=== PATIENT | female | born 1970 | race Caucasian/White ===

== ENCOUNTER 2017-07-22 12:53 | Outpatient (CLI) | payer BC ==
--- NOTE | 2017-07-22 14:05 | RAD ---
CERVICAL SPINE THREE VIEWS: HISTORY: A 47-year-old female with a history of neck pain and diagnosis M47.812. FINDINGS: Evidence for spondylosis, particularly at C4-C5 and at C5-C6. There is some very minute retrolisthes is of C5 on C6 and anterolisthesis of C4 on C5. No evidence for abnormal translation between flexion and extension. No prevertebral soft tissue swelling. C7-T1 is not completely seen and is partially obscured on these lateral views. IMPRESSION: 1. Evidence for spondylosis. 2. No abnormal translation. POS: [facility]
== END 2017-07-22 12:54 | disposition home or self-care (01) ==
LOC: TBSIIMAG 12:53
PROVIDERS: ATTEND Neurological Surgery
DX: M47.812 Spondylosis without myelopathy or radiculopathy, cervical region (principal)
CPT/HCPCS: 72040

== ENCOUNTER 2018-10-12 14:04 | Outpatient (CLI) | payer BC ==
[2018-10-12 15:02] LABS: #Basophils 0.1 thou/uL (0.0-0.2); #Eosinphils 0.1 thou/uL (0.0-0.7); #Lymphocytes 2.2 thou/uL (1.20-3.40); #Monocytes 0.9 thou/uL (0.11-0.59); #Neutrophils 6.2 thou/uL (1.40-6.50); %Basophils 0.7 % (0.0-1.0); %Eosinophils 1.1 % (0.0-10.0); %Lymphocytes 23.1 % (21.0-51.0); %Monocytes 9.3 % (0.0-10.0); %Neutrophils 65.8 % (42.0-75.0); Hemoglobin 12.6 g/dL (12.0-16.0); Mean Corpuscular HGB CONC 32.3 g/dL (32.0-36.0); Mean Corpuscular Hemoglobin 29.6 pg (27.0-31.0); Mean Corpuscular Volume 91.4 fL (78.0-98.0); Mean Platelet Volume 7.6 fL (7.4-10.4); Platelet Count 376 thou/uL (130-400); RBC Distribution Width 12.3 % (11.5-14.5); Red Blood Cell (RBC) Count 4.27 mill/uL (4.20-5.40); White Blood Cell (WBC) Count 9.4 thou/uL (4.8-10.8)
[2018-10-12 15:28] LABS: Anion Gap 12 mmol/L (10-20); BUN (Urea Nitrogen) 12 mg/dL (7.0-18.7); Calc. Creatinine Clearance 0 mL/min (70-130); Calcium 9.4 mg/dL (7.8-10.44); Carbon Dioxide 29 mmol/L (22-29); Chloride 104 mmol/L (98-107); Estimated GFR-MDRD 83; Glucose 71 mg/dL (70-105); Potassium 3.9 mmol/L (3.5-5.1); Sodium 141 mmol/L (136-145)
== END 2018-10-12 14:05 | disposition home or self-care (01) ==
LOC: LABBT 14:04
PROVIDERS: ATTEND Orthopaedic Surgery
DX: Z01.812 Encounter for preprocedural laboratory examination (principal); S83.281A Other tear of lateral meniscus, current injury, right knee, initial encounter
CPT/HCPCS: 80048; 85025

== ENCOUNTER 2018-10-15 05:53 | Day surgery (SDC) | payer BC ==
[2018-10-12 14:13] VITALS: BMI 33.6
[2018-10-15] MEDS ORDERED: ceFAZolin Sodium (SDC) 2 GM/100 ML BAG ONE (06:26)
[2018-10-15] MEDS ORDERED: Scopolamine 1.5 mg/72 hour Patch ONE (07:07)
--- NOTE | 2018-10-15 12:57 | OP ---
DATE OF PROCEDURE: PREOPERATIVE DIAGNOSIS: Lateral meniscus tear, right knee. 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 ESTIMATED BLOOD LOSS: Minimal. SPECIMENS: None. DRAINS: None. COMPLICATIONS: None. DESCRIPTION OF PROCEDURE: The patient was taken to the operating room, where general anesthesia was induced. Right leg was prepped and draped in usual sterile fashion. ACL was intact. Medial compartment was intact. Did a partial lateral meniscectomy. Did not do any abrasion chondroplasty. The knee was irrigated. patellar pouch. The knee was drained, and sterile dressing was applied. Job ID: [id number]
== END 2018-10-15 10:33 | disposition home or self-care (01) ==
LOC: SDC 05:53
PROVIDERS: ATTEND Orthopaedic Surgery
PROC: 0SBC0ZZ Excision of Right Knee Joint, Open Approach (ICD-10-PCS; principal; 2018-10-15)
DX: S83.261A Peripheral tear of lateral meniscus, current injury, right knee, initial encounter (principal); M94.261 Chondromalacia, right knee; M17.0 Bilateral primary osteoarthritis of knee; F90.9 Attention-deficit hyperactivity disorder, unspecified type; F32.9 Major depressive disorder, single episode, unspecified; M79.7 Fibromyalgia; Z79.899 Other long term (current) drug therapy; Z88.5 Allergy status to narcotic agent; Z88.1 Allergy status to other antibiotic agents
CPT/HCPCS: J0690

== ENCOUNTER 2019-09-10 09:56 | Outpatient (CLI) | payer BC, OTHER ==
[2019-09-10 14:02] LABS: #Eosinphils 0.2 thou/uL (0.0-0.7); #Lymphocytes 1.9 thou/uL (1.20-3.40); #Monocytes 0.5 thou/uL (0.11-0.59); #Neutrophils 3.7 thou/uL (1.40-6.50); %Basophils 0.6 % (0.0-1.0); %Eosinophils 3.5 % (0.0-10.0); %Lymphocytes 29.5 % (21.0-51.0); %Monocytes 7.1 % (0.0-10.0); %Neutrophils 59.2 % (42.0-75.0); Hemoglobin 12.8 g/dL (12.0-16.0); Mean Corpuscular Hemoglobin 28.9 pg (27.0-31.0); Mean Corpuscular Volume 90.4 fL (78.0-98.0); Mean Platelet Volume 8.3 fL (7.4-10.4); Platelet Count 356 thou/uL (130-400); RBC Distribution Width 12.6 % (11.5-14.5); Red Blood Cell (RBC) Count 4.44 mill/uL (4.20-5.40); White Blood Cell (WBC) Count 6.3 thou/uL (4.8-10.8)
[2019-09-10 14:13] LABS: Bacteria/HPF 2+ HPF (None Seen); Bilirubin Negative (Negative); Blood, Urine Negative (Negative); Clarity Clear (Clear); Glucose, Urine (Dipstick) Normal (Negative); Leukocyte Negative Leu/uL (Negative); Nitrite Negative (Negative); Protein, Urine (Dipstick) 10 mg/dL (Neg-Trace); RBC/HPF 0-3 HPF (0-3); Squamous Epithelial 0-3 HPF (0-3); Urobilinogen Normal mg/dL (Less than 2); WBC/HPF 0-3 HPF (0-3)
[2019-09-10 14:26] LABS: Prothrombin Time 12.7 sec (12.0-14.7)
[2019-09-10 14:33] LABS: Anion Gap 14 mmol/L (10-20); BUN (Urea Nitrogen) 8 mg/dL (9.8-20.1); Calc. Creatinine Clearance 0 mL/min (70-130); Calcium 8.8 mg/dL (7.8-10.44); Carbon Dioxide 23 mmol/L (22-29); Chloride 105 mmol/L (98-107); Estimated GFR-MDRD 84; Glucose 88 mg/dL (70-105); Potassium 4.3 mmol/L (3.5-5.1); Sodium 138 mmol/L (136-145)
[2019-09-11 11:37] LABS: SARS-CoV-2 MS2 Positive; SARS-CoV-2 N Gene Negative; SARS-CoV-2 S Gene Negative; SARS-CoV-2 orf1ab Negative
== END 2019-09-10 09:57 | disposition home or self-care (01) ==
LOC: LABBT 09:56
PROVIDERS: ATTEND Orthopaedic Surgery
DX: Z01.818 Encounter for other preprocedural examination (principal); Z11.59 Encounter for screening for other viral diseases; M17.31 Unilateral post-traumatic osteoarthritis, right knee
CPT/HCPCS: 80048; 81001; 85025; 85610; 87081; 87635; U0003

== ENCOUNTER 2019-09-14 06:46 | Inpatient (IN) | payer BC ==
[2019-09-14] MEDS ORDERED: Sodium Chloride 0.9% 100 ML ONE (06:51)
[2019-09-14] MEDS ORDERED: Tranexamic Acid 1,000 MG/10 ML VIAL ONE (06:51)
[2019-09-14] MEDS ORDERED: Vancomycin 1.5 GRAM/300 ML BAG ONE (06:51)
[2019-09-14] MEDS ORDERED: Promethazine HCl 25 MG/ML VIAL IM PRN ×3 (07:11→10:18)
[2019-09-14] MEDS ORDERED: Acetaminophen 325 MG TAB PO PRN (07:11)
[2019-09-14] MEDS ORDERED: Ondansetron PF 4 MG/2 ML Vial IVP PRN ×2 (07:11→09:03)
[2019-09-14] MEDS ORDERED: Zolpidem Tartrate 5 MG TAB PO PRN ×2 (07:11→09:03)
[2019-09-14] MEDS ORDERED: Midazolam HCl 2 mg/2 ml Vial ONE (08:14)
[2019-09-14] MEDS ORDERED: Fentanyl 100 MCG/2 ML VIAL ONE ×3 (08:14→10:50)
[2019-09-14] MEDS ORDERED: EPINEPHrine 1 MG/ML AMP ONE (08:14)
[2019-09-14] MEDS ORDERED: oxyCODONE/Acetaminophen 5 mg/325 mg Tablet PO PRN (08:48)
[2019-09-14] MEDS ORDERED: Scopolamine 1.5 mg/72 hour Patch ONE (08:52)
[2019-09-14] MEDS ORDERED: [UNRECOGNIZED DRUG - OTHER] PO SCH (09:00)
[2019-09-14] MEDS ORDERED: AMPHETAMINE PO SCH (09:00)
[2019-09-14] MEDS ORDERED: DEXTROAMPHETAMINE PO SCH (09:00)
[2019-09-14] MEDS ORDERED: Ropivacaine HCl/PF 250 ML in Premix Bag 1 BAG NERVE BLCK SCH (09:03)
[2019-09-14] MEDS ORDERED: traMADol HCl 50 MG TAB PO PRN ×2 (09:03)
[2019-09-14] MEDS ORDERED: Fentanyl 100 MCG/2 ML VIAL SLOW IVP PRN (09:05)
[2019-09-14] MEDS ORDERED: Ketorolac Tromethamine 30 MG/ML VIAL IVP PRN (10:18)
[2019-09-14] MEDS ORDERED: Ondansetron HCl/PF 4 MG/2 ML Vial IVP PRN (10:18)
[2019-09-14] MEDS ORDERED: Promethazine HCl 25 MG/ML VIAL SLOW IVP PRN (10:18)
[2019-09-14] MEDS ORDERED: diphenhydrAMINE 50 MG/ML VIAL ONE (11:13)
[2019-09-14] MEDS ORDERED: PROPOFOL 200 MG/20 ML VIAL ONE (11:43)
[2019-09-14] MEDS ORDERED: EPHEDRINE 25 MG/5 ML SYRINGE ONE (11:43)
[2019-09-14] MEDS ORDERED: Dexamethasone 20 MG/5 ML VIAL ONE (11:43)
[2019-09-14] MEDS ORDERED: Ondansetron PF 4 MG/2 ML Vial ONE (11:43)
[2019-09-14] MEDS ORDERED: Ropivacaine 0.2% HCl/PF (40 MG/20 ML VIAL) ONE (11:43)
[2019-09-14] MEDS ORDERED: Bupivacaine HCl 0.5%/Epinephrine 1:200,000/PF 30 ml Vial ONE (11:43)
[2019-09-14] MEDS: Aspirin 81 mg Enteric Coated Tablet PO SCH ×3 (12:02→21:02)
[2019-09-14] MEDS: DULoxetine 60 MG CAP PO SCH (12:02)
[2019-09-14] MEDS: Hydroxychloroquine Sulfate 200 MG TAB PO SCH ×2 (12:03→21:58)
[2019-09-14] MEDS: Senokot S 8.6-50 MG TAB PO SCH ×2 (12:03→21:00)
[2019-09-14] MEDS: Multivitamin W/ Minerals 1 TAB PO SCH (12:03)
[2019-09-14] MEDS: Ferrous Gluconate 324 MG TAB PO SCH ×2 (12:03→21:00)
[2019-09-14] MEDS: Sodium Chloride 0.9% 1,000 ML IV SCH ×2 (12:05→15:45)
[2019-09-14] MEDS: Ketorolac Tromethamine 30 MG/ML VIAL IVP SCH ×5 (13:11→23:16)
[2019-09-14] MEDS: diphenhydrAMINE 25 MG CAP PO PRN ×2 (13:11→21:02)
--- NOTE | 2019-09-14 13:20 | RAD ---
RIGHT KNEE 2 VIEWS: HISTORY: Postop total knee arthroplasty. FINDINGS/IMPRESSION: Status post total knee replacement without periprosthetic fracture or dislocation or other acute proc ess. POS: [facility]
[2019-09-14] MEDS ORDERED: Albuterol Sulfate 1.25 MG/3 ML NEB INH PRN (14:00)
[2019-09-14] MEDS: CEFAZOLIN 2 GM in Premix Bag 1 BAG IVPB SCH ×2 (15:36→22:02)
--- NOTE | 2019-09-14 16:31 | OP ---
DATE OF PROCEDURE: 09/14/2019 TITLE OF PROCEDURE: Right total knee arthroplasty using [place] Triathlon 4 femur, 4 tibia, 11 mm CS X3 polyethylene, and A29 patella. ANDROID ARCHITECT: Gurjit Calix PA-C BLOOD LOSS: Minimal. SPECIMENS: None. DRAINS: None. COMPLICATIONS: None. PROCEDURE IN DETAIL: After informed consent was obtained in the preoperative holding area, the patient was taken to the operative suite where general anesthesia was induced. Once adequate level of general anesthesia was obtained, the patient was positioned and a well-padded tourniquet was placed around the right proximal thigh. The right lower extremity was then prepped and draped in the usual sterile fashion. Prior to exsanguination, a time-out was called and all members of the surgical team agreed upon site, surgeon, and patient. The extremity was then exsanguinated and the tourniquet was raised. A midline longitudinal incision was then made directly over the patella extending 2 fingerbreadths above the superior pole of the patella and 2 fingerbreadths inferior to the inferior patellar pole of the patella. Deeper subcutaneous layers were dissected sharply and local bleeding was controlled with Bovie electrocautery. A quad tendon longitudinal split was then made sharply and a median parapatellar arthrotomy was carried out both sharp and with Bovie electrocautery, carried down to 1 fingerbreadth medial to the tibial tubercle. The knee was then placed into flexion and the patella was everted nicely, and a copious fat pad ectomy was performed allowing for greater exposure of the tibia. The computer-assisted distal femoral fiducial was then placed and pinned firmly, and the distal femoral cutting guide was pinned firmly into place. The oscillating saw was then used to remove the appropriate amount of bone. The 4-in-1 cutting block was then placed on the distal femur and the oscillating saw was used to remove the appropriate amount of bone off the anterior, posterior, and chamfer cuts. After completion of bone cuts, the anterior cruciate ligament was resected sharply and the posterior cruciate ligament retractor was placed and the tibia was subluxed for better exposure. Partial meniscectomies were carried out, and the tibial computer-assisted fiducial was pinned, and the cutting guide was placed. Oscillating saw was then used to remove the bone, with Hohmann retractors used to take care and protect the collateral ligaments. After the tibial resection was performed, a laminar creche attendant was placed in between the freshened bone cuts. The knee placed at 90 degrees and further bilateral meniscectomies were carried out, and the curved osteotome and curettage were used to remove any excess bone spurs in the posterior compartment. The trial femoral component, tibial baseplate were placed with the appropriate polyethylene trial insert with an appropriate polyethylene spacer and patellar button. The knee was taken through full range of motion with flexion and extension from 0 to 90 degrees and patellar broach squarely in the trochlea without any squinting or subluxation noted. The knee was also stable to varus and valgus stressing at 0, 15, 45, and 90 degrees of flexion. The drawer was negative. All trial components were then removed and the keel punch was used to provide the appropriate defect in the tibia with a mallet. The freshened bone cuts were copiously irrigated with pulsatile lavage of about 1.5 L to remove all excess debris. The freshened bone cuts were then dried with suction and lap sponge. The knee was placed in flexion and retractors were placed to provide access to all bone cuts. Tobramycin-impregnated methyl methacrylate cement was then placed on the freshened bone cuts and implants which were malleted firmly into place. Curettage and [place] elevators were used to remove any excess bone cement. The knee was placed into full extension and the patellar button was placed under compression, and the cement was allowed to cure. Once completed, the components were again taken through full range of motion and copious irrigation of the knee was carried out with another liter of normal saline. All components were inspected fully with full range of motion and varus and valgus stressing. There was no laxity noted and full extension was observed clinically. Primary closure was accomplished with #2 interrupted Vicryl stitch of the arthrotomy defect. This was oversewn with a #2 running Quill barbed stitch. The gravitational platelet system was then injected into the arthrotomy prior to closure. The subcutaneous layer was then closed with a running 0 barbed Monocryl stitch and skin closure accomplished with a running subcuticular 3-0 Monocryl barbed Quill stitch and augmented with cement on the skin. Tourniquet was lowered. Good spontaneous return of distal pulses was noted clinically and a sterile dressing was applied to the incision. The procedure was terminated without any complications. The patient was awakened in the operative suite and the was removed, and the patient was taken to the recovery room in stable condition. Job ID: [id number]
--- NOTE | 2019-09-14 18:00 | PDOC.HOSPP ---
- Subjective Encounter Date: 09/14/19 Encounter Time: 17:40 Subjective: Consult for general med mgmt s/p R TKA due to traumatic degenerative changes. Pt states feeling well overall. Apparently had a reaction to Fentanyl earlier tx with Benadryl and now resolved. - Objective Vital Signs & Weight: Vital Signs (12 hours) Temp Pulse Resp BP Pulse Ox 09/14/19 11:40 97.0 F L 69 16 121/72 95 Weight Weight 194 lb I&O: 09/13/19 09/14/19 09/15/19 06:59 06:59 06:59 Intake Total 230 Balance 230 Additional Labs: Laboratory Tests 09/10/19 09/10/19 09/10/19 12:14 12:14 12:14 WBC 6.3 Hgb 12.8 Hct 40.1 Plt Count 356 Sodium 138 Potassium 4.3 Chloride 105 Carbon Dioxide 23 BUN 8 L Creatinine 0.73 Glucose 88 COVID-19 PCR Not Detected EKG Reviewed by me: Yes (NSR in 70's, no acute changes) Hospitalist ROS - Medication Medications: Active Medications Generic Name Dose Route Start Last Admin Trade Name Freq PRN Reason Stop Dose Admin Aspirin 81 mg 09/14/19 09:00 09/14/19 12:02 Ecotrin PO Not Given BID MICHAELLE Aspirin 81 mg 09/14/19 09:00 09/14/19 12:02 Ecotrin PO Not Given DAILY MICHAELLE Diphenhydramine HCl 25 mg 09/14/19 07:11 09/14/19 13:11 Benadryl PO 25 mg Q6H PRN Administration Itching Duloxetine HCl 60 mg 09/14/19 09:00 09/14/19 12:02 Cymbalta PO Not Given QAM MICHAELLE Ferrous Gluconate 324 mg 09/14/19 09:00 09/14/19 12:03 Fergon PO Not Given BID MICHAELLE Hydroxychloroquine Sulfate 200 mg 09/14/19 09:00 09/14/19 12:03 Plaquenil PO Not Given BID MICHAELLE Cefazolin Sodium/Dextrose 2 gm 50 mls @ 100 mls/hr 09/14/19 15:00 09/14/19 15 :36 / Device IVPB 09/14/19 23:29 50 mls 0700,1500,2300 MICHAELLE Administration Sodium Chloride 1,000 mls @ 100 mls/hr 09/14/19 07:15 09/14/19 15:45 Normal Saline 0.9% IV Not Given .Q10H MICHAELLE Iron/Minerals/Multivitamins 1 tab 09/14/19 09:00 09/14/19 12:03 Theragran M PO Not Given DAILY [facility] Ketorolac Tromethamine 30 mg 09/14/19 14:00 09/14/19 13:12 Toradol IVP 09/16/19 14:01 Not Given Q8HR MICHAELLE Ketorolac Tromethamine 30 mg 09/14/19 12:00 09/14/19 17:42 Toradol IVP 09/16/19 06:01 30 mg Q6HR MICHAELLE Administration Senna/Docusate Sodium 2 tab 09/14/19 09:00 09/14/19 12:03 Senokot S PO Not Given BID MICHAELLE - Exam General Appearance: NAD, awake alert Eye: PERRL, anicteric sclera ENT: normocephalic atraumatic, no oropharyngeal lesions Neck: supple, symmetric, no JVD, no thyromegaly, no lymphadenopathy Heart: RRR, no murmur, no gallops, no rubs, normal peripheral pulses Heart - other findings: S1, S2 Respiratory: CTAB, no wheezes, no rales, no ronchi, normal chest expansion Gastrointestinal: soft, non-tender, non-distended, normal bowel sounds, no palpable masses Extremities: no cyanosis, no clubbing Extremities - other findings: R knee with GABBIE wrap in place, moves foot/ sensation diminished Skin: normal turgor, no lesions Neurological: cranial nerve grossly intact, no new deficit Musculoskeletal: normal tone Psychiatric: normal affect, A&O x 3 Hosp A/P (1) Degenerative joint disease Code(s): M19.90 - UNSPECIFIED OSTEOARTHRITIS, UNSPECIFIED SITE Status: Chronic Qualifiers: Osteoarthritis location: knee Laterality: right Plan: s/p R TKA, continue routine Joint U protocol, ASA 81mg BID, DVT ppx, PT/OT, pain control with Toradol (2) Allergic drug reaction Code(s): T78.40XA - ALLERGY, UNSPECIFIED, INITIAL ENCOUNTER Status: Acute Plan: Mild rxn to Fentanyl tx with Benadryl, stable currently (3) Depression Code(s): F32.9 - MAJOR DEPRESSIVE DISORDER, SINGLE EPISODE, UNSPECIFIED Status : Chronic Plan: Resume home regimen, supportive mgmt (4) ADHD Status: Chronic Plan: Continue Adderrall XR - Plan continue antibiotics, PT/OT, psychologist social, incentive spirometry, out of bed/ ambulate, DVT proph w/SCDs Stable currently Continue Incentive spirometry Benadryl PRN for allergic reaction Resume home Adderrall OOB with PT Continue ASA 81mg BID Pain control with Toradol AM lab: CBC Thank you for the consult. Will continue to follow with primary service.
[2019-09-14] MEDS: Mometasone 200 MCG/Formoterol 5 MCG 120 PUFF INHALER INH SCH (19:36)
[2019-09-14] MEDS: Gabapentin 100 MG CAP PO SCH (21:02)
[2019-09-15] MEDS: diphenhydrAMINE 25 MG CAP PO PRN ×3 (02:13→15:57)
[2019-09-15] MEDS: traMADol HCl 50 MG TAB PO PRN ×3 (02:13→20:12)
[2019-09-15] MEDS: Sodium Chloride 0.9% 1,000 ML IV SCH ×3 (02:29→23:20)
[2019-09-15 06:03] LABS: Hemoglobin 11.3 g/dL (12.0-16.0); Mean Corpuscular Hemoglobin 30.5 pg (27.0-31.0); Mean Corpuscular Volume 89.7 fL (78.0-98.0); Mean Platelet Volume 8.2 fL (7.4-10.4); Platelet Count 304 thou/uL (130-400); RBC Distribution Width 12.4 % (11.5-14.5); White Blood Cell (WBC) Count 14.8 thou/uL (4.8-10.8)
[2019-09-15] MEDS: Ketorolac Tromethamine 30 MG/ML VIAL IVP SCH ×7 (06:33→23:41)
[2019-09-15] MEDS: Mometasone 200 MCG/Formoterol 5 MCG 120 PUFF INHALER INH SCH ×2 (06:50→18:55)
[2019-09-15] MEDS: Aspirin 81 mg Enteric Coated Tablet PO SCH ×3 (08:52→20:12)
[2019-09-15] MEDS: Ferrous Gluconate 324 MG TAB PO SCH ×2 (08:54→20:12)
[2019-09-15] MEDS: Multivitamin W/ Minerals 1 TAB PO SCH (08:55)
[2019-09-15] MEDS: Senokot S 8.6-50 MG TAB PO SCH ×2 (08:55→20:13)
[2019-09-15] MEDS: DULoxetine 60 MG CAP PO SCH (08:55)
[2019-09-15] MEDS: Hydroxychloroquine Sulfate 200 MG TAB PO SCH ×2 (12:00→20:13)
[2019-09-15] MEDS: oxyCODONE/Acetaminophen 5 mg/325 mg Tablet PO PRN ×3 (12:05→23:40)
[2019-09-15 12:45] VITALS: BMI 33.3
[2019-09-15] MEDS ORDERED: diphenhydrAMINE 25 MG CAP PO SCH (18:30)
--- NOTE | 2019-09-15 18:43 | PDOC.HOSPP ---
- Subjective Encounter Date: 09/15/19 Encounter Time: 17:30 Subjective: f/u s/p R TKA POD #1. Had some itching after [place] and required Benadryl which helped symptoms. No other new complaints. - Objective Vital Signs & Weight: Vital Signs (12 hours) Temp Pulse Resp BP Pulse Ox 09/15/19 15:58 98.3 F 82 18 124/75 93 L 09/15/19 11:45 98.1 F 64 18 130/77 97 09/15/19 07:20 98.5 F 69 18 110/80 97 Weight Admit Weight 194 lb Weight 194 lb I&O: 09/14/19 09/15/19 09/16/19 06:59 06:59 06:59 Intake Total 670 1710 Output Total 600 1100 Balance 70 610 Result Diagrams: 09/15/19 05:33 Additional Labs: Laboratory Tests 09/10/19 09/10/19 09/10/19 12:14 12:14 12:14 WBC 6.3 Hgb 12.8 Hct 40.1 Plt Count 356 Sodium 138 Potassium 4.3 Chloride 105 Carbon Dioxide 23 BUN 8 L Creatinine 0.73 Glucose 88 COVID-19 PCR Not Detected Hospitalist ROS - Medication Medications: Active Medications Generic Name Dose Route Start Last Admin Trade Name Freq PRN Reason Stop Dose Admin Aspirin 81 mg 09/14/19 09:00 09/15/19 08:55 Ecotrin PO 81 mg BID MICAHELLE Administration Aspirin 81 mg 09/14/19 09:00 09/15/19 08:52 Ecotrin PO Not Given DAILY MICHAELLE Diphenhydramine HCl 25 mg 09/15/19 18:30 09/15/19 18:26 Benadryl PO 09/15/19 20:30 25 mg NOW MICHAELLE Administration Duloxetine HCl 60 mg 09/14/19 09:00 09/15/19 08:55 Cymbalta PO 60 mg QAM MICHAELLE Administration Ferrous Gluconate 324 mg 09/14/19 09:00 09/15/19 08:54 Fergon PO 324 mg BID MICHAELLE Administration Gabapentin 300 mg 09/14/19 21:00 09/14/19 21:02 Neurontin PO 300 mg HS MICHAELLE Administration Hydroxychloroquine Sulfate 200 mg 09/14/19 09:00 09/15/19 12:00 Plaquenil PO 200 mg BID MICHAELLE Administration Sodium Chloride 1,000 mls @ 100 mls/hr 09/14/19 07:15 09/15/19 12:05 Normal Saline 0.9% IV Not Given .Q10H MICHAELLE Ropivacaine 250 ml/ Device 250 mls @ 10 mls/hr 09/14/19 09:03 09/15/19 08:57 NERVE BLCK 09/17/19 09:02 250 mls INF MICHAELLE Administration As Directed Iron/Minerals/Multivitamins 1 tab 09/14/19 09:00 09/15/19 08:55 Theragran M PO 1 tab DAILY MICHAELLE Administration Ketorolac Tromethamine 30 mg 09/14/19 14:00 09/15/19 12:08 Toradol IVP 09/16/19 14:01 Not Given Q8HR MICHAELLE Ketorolac Tromethamine 30 mg 09/14/19 12:00 09/15/19 17:57 Toradol IVP 09/16/19 06:01 30 mg Q6HR MICHAELLE Administration Mometasone Furoate/Formoterol Fumar 2 puff 09/14/19 18:30 09/15/19 06:50 Dulera 200 Mcg/5 Mcg Inhaler INH 2 puff BID-RT MICHAELLE Administration Oxycodone/Acetaminophen 1 tab 09/14/19 08:48 09/15/19 12:07 Percocet 5/325 PO 1 tab Q4H PRN Administration Pain (1-3) Oxycodone/Acetaminophen 2 tab 09/14/19 08:48 09/15/19 15:59 Percocet 5/325 PO 2 tab Q4H PRN Administration Pain (4-6) Senna/Docusate Sodium 2 tab 09/14/19 09:00 09/15/19 08:55 Senokot S PO 2 tab BID MICHAELLE Administration Tramadol HCl 100 mg 09/14/19 07:11 09/15/19 09:18 Ultram PO 100 mg Q6H PRN Administration Moderate Pain (4-6) - Exam General Appearance: NAD, awake alert Eye: PERRL, anicteric sclera ENT: normocephalic atraumatic, no oropharyngeal lesions Neck: supple, symmetric, no JVD, no thyromegaly, no lymphadenopathy Heart: RRR, no murmur, no gallops, no rubs, normal peripheral pulses Heart - other findings: S1, S2 Respiratory: CTAB, no wheezes, no rales, no ronchi, normal chest expansion Gastrointestinal: soft, non-tender, non-distended, normal bowel sounds, no palpable masses Extremities: no cyanosis Extremities - other findings: R knee with surgical dressing in place Skin: normal turgor Neurological: cranial nerve grossly intact, no new deficit Musculoskeletal: normal tone, normal strength, no muscle wasting Psychiatric: normal affect, A&O x 3 Hosp A/P (1) Degenerative joint disease Code(s): M19.90 - UNSPECIFIED OSTEOARTHRITIS, UNSPECIFIED SITE Status: Chronic Qualifiers: Osteoarthritis location: knee Laterality: right Plan: s/p R TKA POD #1, pain control, DVT ppx, Joint U protocol (2) Allergic drug reaction Code(s): T78.40XA - ALLERGY, UNSPECIFIED, INITIAL ENCOUNTER Status: Acute Plan: Increase Benadryl 50mg po q6h PRN (3) Depression Code(s): F32.9 - MAJOR DEPRESSIVE DISORDER, SINGLE EPISODE, UNSPECIFIED Status : Chronic (4) ADHD Status: Chronic - Plan 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
[2019-09-15] MEDS: Gabapentin 100 MG CAP PO SCH (20:11)
[2019-09-15] MEDS: diphenhydrAMINE 50 MG CAP PO PRN (23:41)
[2019-09-16] MEDS: Ketorolac Tromethamine 30 MG/ML VIAL IVP SCH ×2 (06:12→06:19)
[2019-09-16] MEDS: Mometasone 200 MCG/Formoterol 5 MCG 120 PUFF INHALER INH SCH (06:29)
[2019-09-16] MEDS: Aspirin 81 mg Enteric Coated Tablet PO SCH ×2 (07:49→09:54)
[2019-09-16] MEDS: Multivitamin W/ Minerals 1 TAB PO SCH (07:49)
[2019-09-16] MEDS: Senokot S 8.6-50 MG TAB PO SCH (07:49)
[2019-09-16] MEDS: Ferrous Gluconate 324 MG TAB PO SCH (07:49)
[2019-09-16] MEDS: DULoxetine 60 MG CAP PO SCH (07:49)
[2019-09-16] MEDS: oxyCODONE/Acetaminophen 5 mg/325 mg Tablet PO PRN ×2 (08:39→13:20)
[2019-09-16] MEDS: diphenhydrAMINE 50 MG CAP PO PRN ×2 (08:40→13:21)
[2019-09-16] MEDS: Sodium Chloride 0.9% 1,000 ML IV SCH (09:56)
[2019-09-16 11:12] VITALS: BP 132/61; TEMP 98.8
[2019-09-16] MEDS: Hydroxychloroquine Sulfate 200 MG TAB PO SCH (13:13)
--- NOTE | 2019-09-17 12:24 | DIS ---
DATE OF ADMISSION: 09/14/2019 DATE OF DISCHARGE: 09/16/2019 This is Gurjit Calix PA-C dictating a report for Julito Gomez MD. PREOPERATIVE DIAGNOSES: Right knee osteoarthritis, degenerative joint disease. POSTOPERATIVE DIAGNOSES: Right knee osteoarthritis, degenerative joint disease. PROCEDURE: The patient underwent a right total knee replacement. HOSPITAL COURSE: Hospital stay was unremarkable. She was admitted to [address], where she worked with staff, Physical therapy, Occupational therapy, and progressed quite well. She had no other hospital complications or issues. DISCHARGE CONDITION: Good/stable. DISPOSITION: Home. FOLLOWUP: Followup would be in 2 to 4 weeks or sooner if there are problems and/or concerns. DISCHARGE MEDICATIONS: Given with usage instructions. Job ID: [id number]
== END 2019-09-16 13:45 | disposition home or self-care (01) | DRG 470 ==
LOC: SJJU 06:46
PROVIDERS: ADMIT Orthopaedic Surgery; ATTEND Orthopaedic Surgery
PROC: 0SRC0J9 Replacement of Right Knee Joint with Synthetic Substitute, Cemented, Open Approach (ICD-10-PCS; principal; 2019-09-14)
DX: M17.31 Unilateral post-traumatic osteoarthritis, right knee (principal); F32.9 Major depressive disorder, single episode, unspecified; F90.9 Attention-deficit hyperactivity disorder, unspecified type; M79.7 Fibromyalgia; Z98.84 Bariatric surgery status; Z79.899 Other long term (current) drug therapy; Z88.1 Allergy status to other antibiotic agents; Z88.5 Allergy status to narcotic agent
CPT/HCPCS: 36415; 85027; C1713; C1776; J0171; J0670; J0690; J1100; J1200; J1885; J2250; J2405; J2704; J2795; J3010; J3370; J3490; Q0163